=== PATIENT | female | born 1980 | race Caucasian/White ===

== ENCOUNTER 2019-06-18 21:29 | Emergency (ER) | payer OTHER ==
[2019-06-18 21:45] VITALS: TEMP 98; BMI 22.1
[2019-06-18] MEDS ORDERED: ACETAMINOPHEN 1000 MG/100 ML VIAL (NON FORMULARY) IVPB ONE (22:35)
[2019-06-18] MEDS ORDERED: FAMOTIDINE 20 MG/50 ML IVPB 20 MG/50 ML MG IVPB ONE ×2 (22:35→22:59)
[2019-06-18] MEDS ORDERED: DEXTROSE 5%-NORMAL SALINE 1,000 ML IV ONE (22:35)
--- NOTE | 2019-06-18 22:35 | PDOC ---
History of Present Illness - General Chief Complaint: Pain Stated Complaint: ABD/PAIN RADIATING TO THE BACK Time Seen by Provider: 06/18/19 22:26 History Source: Patient Exam Limitations: No Limitations - History of Present Illness Initial Comments: Sadie Guzman is a 38 yo F w a hx of GERD and a hernia who presents to the [facility] er with LUQ abdominal pain which radiates to the back. The patient states the pain is currently a 6/10 and feels like a burning sensation. The pain started 4 days ago but has slowly worsened over the past few days. The pain is worsened whenever the patient eats food. She states that she is sometimes scared to eat because she is concerned that her stomach is going to start hurting. She denies any nausea, vomiting, chest pain, diarrhea, constipation, dysuria, frequency, urgency, recent fevers, chills, or infections. GI doc: Dr. Roche PSH: None reported Social Hx: Denies smoking, drinking, or other substance usage Allergies: NKA, NKDA Past History - Past Medical History Allergies/Adverse Reactions: Allergies Allergy/AdvReac Type Severity Reaction Status Date / Time No Known Allergies Allergy Verified 06/18/19 21:45 Home Medications: Ambulatory Orders Arnica 120 ml TP 06/30/13 - Psycho Social/Smoking Cessation Hx Smoking History: Never smoked Hx Alcohol Use: No Substance Use Type: None Review of Systems - Review of Systems Able to Perform ROS?: No Comments:: CONSTITUTIONAL: Absent: fever, no chills, no fatigue EYES: Absent: visual changes ENT: Absent: ear pain, no sore throat CARDIOVASCULAR: Absent: chest pain, no palpitations RESPIRATORY: Absent: cough, no SOB GI: Present: Abdominal pain, nausea Absent: no vomiting, no constipation, no diarrhea GENITOURINARY: Absent: dysuria, no frequency, no hematuria MUSKULOSKELETAL: Present: Back pain Absent: no arthralgia, no myalgia SKIN: Absent: rash NEURO: Absent: headache *Physical Exam - Vital Signs Last Vital Signs Temp Pulse Resp BP Pulse Ox 98.0 F 70 18 115/80 99 06/18/19 21:42 06/18/19 21:42 06/18/19 21:42 06/18/19 21:42 06/18/19 21:42 - Physical Exam Comments: GENERAL: Well-appearing, well-nourished. No apparent distress. HEENT: Normocephalic, atraumatic. PERRL, EOM intact. CARDIOVASCULAR: Normal S1, S2. Regular rate and rhythm. PULMONARY: No evidence of respiratory distress. Lungs clear to auscultation bilaterally. No wheezing, rales or rhonchi. ABDOMEN: The abdomen is soft with mild TTP in the LUQ and epigastric regions. There are normal bowel sounds and the abdomen is not distended. There is no rebound or guarding. EXTREMITIES: Normal ROM in all four extremities. No gross deformities. SKIN: Warm, dry. No rash NEUROLOGICAL: No focal neurological deficits. ED Treatment Course - LABORATORY CBC & Chemistry Diagram: 06/18/19 23:00 06/18/19 23:00 Medical Decision Making - Medical Decision Making Sadie Guzman is a 38 yo F w a hx of GERD and a hernia who presents to the [facility] er with LUQ abdominal pain which radiates to the back. The patient states the pain is currently a 6/10 and feels like a burning sensation. The pain started 4 days ago but has slowly worsened over the past few days. The pain is worsened whenever the patient eats food. She states that she is sometimes scared to eat because she is concerned that her stomach is going to start hurting. She denies any nausea, vomiting, chest pain, diarrhea, constipation, dysuria, frequency, urgency, recent fevers, chills, or infections. Vital Signs Temp Pulse Resp BP Pulse Ox 98.0 F 70 18 115/80 99 06/18/19 21:42 06/18/19 21:42 06/18/19 21:42 06/18/19 21:42 06/18/19 21:42 DDx IBNLT: GERD, PUD, gastritis, gastroenteritis, pancreatitis, cholecystitis, electrolyte/metabolic distrubance, anemia, , UTI/Pylo, renal colic, kidney stone, SBO, ovarian cyst Plan: Labs, urine, CTAP, GI cocktail, IV hydration, supportive care, re-assess. Labs: Mild left shift, otherwise unremarkable. Urine: Clean CTAP: HISTORY: Rule out appendicitis COMPARISON: None. FINDINGS: Lung bases are clear. The visualized cardiac chambers are normal size and configuration. Normal liver, gallbladder, pancreas, spleen, adrenal glands and kidneys. The stomach and abdominal small and large bowel are normal. There is no aortic aneurysm. There is no significant retroperitoneal lymphadenopathy. The pelvic small and large bowel are normal. The appendix is normal. 1.9 cm involuting right ovarian cyst is noted. The uterus and left adnexal structures are normal. Urinary bladder is unremarkable. There is minimal pelvic free fluid. No discrete pelvic lymphadenopathy is identified. IMPRESSION: 1.9 cm involuting right ovarian cyst with minimal pelvic free fluid. No other localizing findings for acute pathology. Re-assessment: Patient feels better after receiving analgesics. She is comfortable knowing her pain is possibly coming from her ovarian cyst. 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 Strict return precautions discussed with patient. She knows to return to the ER if her pain worsens or she experiences any other new or worsening concerns. Discharge - Discharge Information Problems reviewed: Yes Clinical Impression/Diagnosis: Right ovarian cyst Condition: Improved Disposition: HOME - Admission No - Follow up/Referral Referrals: Tracy Hill MD [Staff Physician] - - Patient Discharge Instructions Patient Printed Discharge Instructions: DI for Ovarian Cyst Additional Instructions: You came into the ER with right lower abdominal pain. We did a cat scan which showed that you have a small 1.9 cm ovarian cyst. Please read the attached handout for further explanation. Take motrin/ibuprofen/advil as needed for pain control. Please schedule a follow up appointment with the cable engineer outside plant we are referring you to in the next 5 to 7 days. Come back to the ER immediately if your pain worsens or you have any other new or worsening concerns. Thank you for coming to the [facility] ER. We hope you feel better soon. Print Language: LUXEMBOURGER - Post Discharge Activity
[2019-06-18] MEDS ORDERED: MAG HYDROX/AL HYDROX/SIMETH 30 ML UNIT-DOSE CUP PO ONE (22:37)
[2019-06-18] MEDS ORDERED: DICYCLOMINE HCL 20 MG TABLET PO ONE (22:46)
[2019-06-18] MEDS ORDERED: DICYCLOMINE HCL 10 MG CAPSULE ONE (22:59)
[2019-06-18] MEDS ORDERED: ACETAMINOPHEN INJECTION 100 ML IVPB ONE (22:59)
[2019-06-18] MEDS ORDERED: MAG HYDROX/AL HYDROX/SIMETH 30 ML UNIT-DOSE CUP ONE (22:59)
[2019-06-18 23:07] LABS: BASO % 0.6 % (0-2.0); EOS % 1.9 % (0-4.5); HEMATOCRIT 33.8 % (32.4-45.2); HEMOGLOBIN 11.5 GM/dL (10.7-15.3); LYMPH % 47.5 % (8-40); MCHC 34.1 g/dl (32.0-36.0); MEAN CELL VOLUME 90.9 fl (80-96); MEAN PLT VOLUME 7.8 fl (7.5-11.1); MONO % 8.7 % (3.8-10.2); NEUT % 41.3 % (42.8-82.8); PLATELET COUNT 187 K/MM3 (134-434); RBC 3.72 M/mm3 (3.60-5.2); RDW 12.8 % (11.6-15.6); WHITE BLOOD COUNT 4.3 K/mm3 (4.0-10.0)
[2019-06-18 23:21] LABS: PH,URINE 7.5 (5.0-8.0); URINE APPEARANCE CLEAR; URINE BILIRUBIN NEGATIVE (NEGATIVE); URINE COLOR DK YELLOW; URINE GLUCOSE (UA) NEGATIVE (NEGATIVE); URINE KETONE NEGATIVE (NEGATIVE); URINE LEUK ESTERASE NEGATIVE (NEGATIVE); URINE NITRITE NEGATIVE (NEGATIVE); URINE PROTEIN NEGATIVE (NEGATIVE); URINE UROBILINOGEN 0.2 mg/dL (0.2-1.0)
[2019-06-18 23:35] LABS: ALBUMIN 3.5 g/dl (3.4-5.0); BILIRUBIN,TOTAL 0.3 mg/dL (0.2-1); BLOOD UREA NITROGEN 11.5 mg/dL (7-18); CALCIUM 8.5 mg/dL (8.5-10.1); CREATININE 0.7 mg/dL (0.55-1.3); MAGNESIUM 2.1 mg/dL (1.8-2.4); PHOSPHOROUS 3.4 mg/dL (2.5-4.9); POTASSIUM 3.8 mmol/L (3.5-5.1); TOT PROT 6.6 g/dl (6.4-8.2)
--- NOTE | 2019-06-19 00:46 | PDOC ---
Attending Attestation - Resident Resident Name: Corby Marshall - ED Attending Attestation I have performed the following: I have examined & evaluated the patient, The case was reviewed & discussed with the resident, I agree w/resident's findings & plan - HPI HPI: 06/19/19 00:43 Pt comes with mid abd pain. Started today. States that she has no dysuria and she has normal BM today at 11am She ate soup and a beef burger and pickles today nothing else; states that she is a small eater. Afebrile No N/V/D - Physicial Exam PE: 06/19/19 00:44 Pt has periumbilical pain Flank percussion causes pain around the umbilicus Pt has rebound in the lower quadrants that hurt at the belly button Pt has no other findings Normal rest of exam Agree with resident exam - Medical Decision Making 06/19/19 00:45 Labs normal Pt will have a CT scan to r/o appy 06/19/19 01:53 Patient Name: TONY MONSIVAIS THIS IS A PRELIMINARY REPORT FROM [facility] DATE OF SERVICE: 2019-06-19 00:17:14 IMAGES: 471 EXAM: ABDOMEN \T\ PELVIS CT WITH CONTR HISTORY: Rule out appendicitis COMPARISON: None. FINDINGS: Lung bases are clear. The visualized cardiac chambers are normal size and configuration. Normal liver, gallbladder, pancreas, spleen, adrenal glands and kidneys. The stomach and abdominal small and large bowel are normal. There is no aortic aneurysm. There is no significant retroperitoneal lymphadenopathy. The pelvic small and large bowel are normal. The appendix is normal. 1.9 cm involuting right ovarian cyst is noted. The uterus and left adnexal structures are normal. Urinary bladder is unremarkable. There is minimal pelvic free fluid. No discrete pelvic lymphadenopathy is identified. IMPRESSION: 1.9 cm involuting right ovarian cyst with minimal pelvic free fluid. No other localizing findings for acute pathology. 06/19/19 03:42 stable to go home with NSAIDS
[2019-06-19] MEDS ORDERED: KETOROLAC TROMETHAMINE 30 MG/1 ML VIAL IVPUSH ONE (01:53)
[2019-06-19] MEDS ORDERED: KETOROLAC TROMETHAMINE 30 MG/1 ML VIAL ONE (02:21)
[2019-06-19 02:29] VITALS: BP 118/74; PULSE 80
== END 2019-06-19 02:29 | disposition home or self-care (01) ==
LOC: JER 21:29
PROC: 3E033GC Introduction of Other Therapeutic Substance into Peripheral Vein, Percutaneous Approach (ICD-10-PCS; principal; 2019-06-18)
PROC: 3E0333Z Introduction of Anti-inflammatory into Peripheral Vein, Percutaneous Approach (ICD-10-PCS; 2019-06-18)
PROC: 3E033NZ Introduction of Analgesics, Hypnotics, Sedatives into Peripheral Vein, Percutaneous Approach (ICD-10-PCS; 2019-06-18)
DX: N83.201 Unspecified ovarian cyst, right side (principal); K21.9 Gastro-esophageal reflux disease without esophagitis
CPT/HCPCS: 36415; 74177-TC; 80053; 81003; 83690; 83735; 84100; 84703; 85025; 87086; 99282-25; J0131

== ENCOUNTER 2020-03-13 14:36 | Day surgery (SDC) | payer OTHER ==
--- NOTE | 2020-03-13 14:40 | PDOC ---
Rapid Medical Evaluation Time Seen by Provider: 03/13/20 14:40 Medical Evaluation: Allergies Allergy/AdvReac Type Severity Reaction Status Date / Time No Known Allergies Allergy Verified 06/18/19 21:45 03/13/20 14:40 I have performed a brief in-person evaluation of this patient. CC: upper abdominal pain x2 days. +nausea/NBNB vomiting. PE: RUQ tenderness with guarding. Orders: labs, urine, sono Patient to proceed to ED for further evaluation. Discharge Disposition - Diagnosis RUQ pain - Referrals - Patient Instructions - Post Discharge Activity
[2020-03-13] MEDS ORDERED: SODIUM CHLORIDE 1,000 ML IV STA ×2 (14:41→17:00)
[2020-03-13] MEDS ORDERED: ONDANSETRON 4 MG/2 ML VIAL IVPUSH ONE (14:41)
[2020-03-13 14:43] VITALS: BMI 23.8
[2020-03-13 15:23] LABS: BASO % 0.1 % (0-2.0); EOS % 0.1 % (0-4.5); HEMATOCRIT 37.5 % (32.4-45.2); HEMOGLOBIN 12.6 GM/dL (10.7-15.3); LYMPH % 8.9 % (8-40); MCH 30.5 pg (25.7-33.7); MCHC 33.6 g/dl (32.0-36.0); MEAN CELL VOLUME 90.8 fl (80-96); MEAN PLT VOLUME 7.7 fl (7.5-11.1); MONO % 8.5 % (3.8-10.2); NEUT % 82.4 % (42.8-82.8); PLATELET COUNT 205 K/MM3 (134-434); RBC 4.13 M/mm3 (3.60-5.2); RDW 12.8 % (11.6-15.6); WHITE BLOOD COUNT 13.9 K/mm3 (4.0-10.0)
[2020-03-13 15:40] LABS: BILIRUBIN,TOTAL 0.8 mg/dL (0.2-1); BLOOD UREA NITROGEN 9.7 mg/dL (7-18); CALCIUM 8.8 mg/dL (8.5-10.1); CREATININE 0.7 mg/dL (0.55-1.3); POTASSIUM 4.4 mmol/L (3.5-5.1); TOT PROT 7.6 g/dl (6.4-8.2)
--- NOTE | 2020-03-13 15:53 | PDOC ---
History of Present Illness - General Chief Complaint: Pain Stated Complaint: ABD PAIN/NAUSEA Time Seen by Provider: 03/13/20 14:40 History Source: Patient Exam Limitations: No Limitations - History of Present Illness Travel History: No Initial Comments: 03/13/20 15:58 39-year-old female presents to ED with complaints of right upper quadrant right flank pain for the past 2 days without nausea vomiting, fever, chills, diarrhea, change in menses, change in urine pattern, or rash. Patient denies any recent travel recent illness, recent sick contacts. Patient also denies injury Timing/Duration: reports: constant Quality: reports: moderate, sharpness Abdominal Pain Onset Location: reports: RUQ, flank Pain Radiation: reports: flank Activities at Onset: reports: none Aggravating Factors: improves with: None Alleviating Factors: improves with: None Past History - Travel History Traveled outside of the country in the last 30 days: No Close contact w/someone who was outside of country & ill: No - Medical History Allergies/Adverse Reactions: Allergies Allergy/AdvReac Type Severity Reaction Status Date / Time No Known Allergies Allergy Verified 03/13/20 14:42 Home Medications: Ambulatory Orders Arnica 120 ml TP 06/30/13 COPD: No - Reproductive History Is Patient Now?: No - Immunization History Td Vaccination: Yes TDAP Vaccination: Yes Immunization Up to Date: Yes - Psycho-Social/Smoking History Patient Lives Alone: No Lives with/in: spouse/SO Smoking History: Never smoked Abd/GI Specific PMHX - Complaint Specific PMHX Diverticulitis: No Gall Bladder Disease: No Review of Systems - Review of Systems Able to Perform ROS?: Yes Constitutional: No: Symptoms Reported HEENTM: No: Symptoms Reported Respiratory: No: Symptoms reported Cardiac (ROS): No: Symptoms Reported ABD/GI: Yes: Abdominal cramping : Yes: Flank Pain Musculoskeletal: Yes: Back Pain Integumentary: No: Symptoms Reported Neurological: No: Symptoms reported Endocrine: No: Symptoms Reported Hematologic/Lymphatic: No: Symptoms Reported *Physical Exam - Vital Signs Last Vital Signs Temp Pulse Resp BP Pulse Ox 98.4 F 82 18 111/79 100 03/13/20 14:38 03/13/20 14:38 03/13/20 14:38 03/13/20 14:38 03/13/20 14:38 - Physical Exam General Appearance: Yes: Nourished, Appropriately Dressed. No: Apparent Dis tress HEENT: negative: Pale Conjunctivae Neck: positive: Normal Thyroid. negative: Decreased range of motion Respiratory/Chest: positive: Lungs Clear, Normal Breath Sounds. negative: Chest Tender, Respiratory Distress, Accessory Muscle Use Cardiovascular: positive: Regular Rhythm, Regular Rate. negative: Murmur Gastrointestinal/Abdominal: positive: Soft, Tenderness (Right flank right upper and lower along with mild right CVA tenderness) Musculoskeletal: positive: CVA Tenderness (R) Extremity: positive: Normal Inspection Integumentary: positive: Normal Color, Warm, Moist Neurologic: positive: Motor Strength 5/5 (ambulatory) Heart Score/ECG Review - ECG Intrepretation Rhythm: Regular Rhythm (rate 80, nsr , qtc 463) ED Treatment Course - LABORATORY CBC & Chemistry Diagram: 03/13/20 15:04 03/13/20 15:04 - RADIOLOGY Radiology Studies Ordered: Category Date Time Status SPIRAL- RENAL-STONE CT [CT] Stat CT Scan 03/13/20 15:19 Ordered - Medications Given in the ED: ED Medications Discontinued Medications Generic Name Dose Route Start Last Admin Trade Name Freq PRN Reason Stop Dose Admin Ondansetron HCl 4 mg 03/13/20 14:41 03/13/20 15:00 Zofran Injection IVPUSH 03/13/20 14:42 4 mg ONCE ONE Administration Medical Decision Making - Medical Decision Making 03/13/20 16:01 Chief complaint: Patient with right abdominal pain without aggravating or alleviating factors no other complaints. Exam: Patient with right upper quadrant right flank right CVA tenderness. Plan: Labs, urine and imaging ordered 03/13/20 16:45 Laboratory Tests 03/13/20 03/13/20 03/13/20 15:04 15:04 15:35 WBC 13.9 H Hgb 12.6 Hct 37.5 Absolute Neuts (auto) 11.4 H Sodium 135 L Potassium 4.4 Chloride 104 Carbon Dioxide 25 Anion Gap 7 L BUN 9.7 Creatinine 0.7 Random Glucose 110 H Calcium 8.8 Total Bilirubin 0.8 AST 12 L ALT 17 Total Protein 7.6 Albumin 4.0 Lipase 138 Urine Ketones Negative Urine Nitrite Negative Urine HCG, Qual Negative Abdominal CT pending. 03/13/20 17:[address] shows positive appendicitis without obvious abscess or other acute pathology. Patient be made n.p.o. surgery on-call to be notified IV access established IV fluids infusing 03/13/20 18:[address] Myers who will consult shortly. Micro blog sent to hospitalist 03/13/20 18:18 Case discussed with resident Dr. Thompson and will accept patient. Dr. morlaes will be the admitting physician Discharge - Discharge Information Problems reviewed: Yes Clinical Impression/Diagnosis: Appendicitis - Admission Yes - Follow up/Referral Referrals: ON STAFF,NOT [Primary Care Provider] - - Patient Discharge Instructions - Post Discharge Activity
[2020-03-13 15:57] LABS: HCG,QUALITATIVE URINE Negative
[2020-03-13 16:18] LABS: URINE APPEARANCE CLEAR; URINE BILIRUBIN NEGATIVE (NEGATIVE); URINE COLOR YELLOW; URINE GLUCOSE (UA) NEGATIVE (NEGATIVE); URINE KETONE NEGATIVE (NEGATIVE); URINE LEUK ESTERASE NEGATIVE (NEGATIVE); URINE NITRITE NEGATIVE (NEGATIVE); URINE PROTEIN NEGATIVE (NEGATIVE)
[2020-03-13] MEDS ORDERED: KETOROLAC TROMETHAMINE 30 MG/1 ML VIAL IVPUSH ONE (16:50)
[2020-03-13] MEDS ORDERED: KETOROLAC TROMETHAMINE 30 MG/1 ML VIAL ONE (16:51)
[2020-03-13] MEDS ORDERED: CEFOXITIN SODIUM 2 GM in DEXTROSE 5%-WATER 100 ML IVPB ONE (19:28)
[2020-03-13] MEDS ORDERED: LACTATED RINGERS SOLUTION 1,000 ML/1,000 ML INFUS.BAG IV SCH ×2 (19:30→23:29)
--- NOTE | 2020-03-13 19:46 | PN ---
Teaching Attending Note Name of Resident: Nelda Sánchez ATTENDING PHYSICIAN STATEMENT I saw and evaluated the patient. I reviewed the resident's note and discussed the case with the resident. I agree with the resident's findings and plan as documented. SUBJECTIVE: Patient is a 39 year old woman with a PMH of GERD, Papillary thyroid cancer (s/p resection) and Right ovarian cyst who presents to ER with complaints of right upper quadrant and right flank pain for the past 2 days. Had associated nausea, decreased appetite and chills. No noted aggravating or alleviating factors. Patient denies injury. Pain is constant, moderate and sharp. Patient denies chest pain, shortness of breath, headache, palpitations, dizziness, fever, vomiting, diarrhea, constipation, dysuria, frequency, urgency, melena, hematochezia or hematuria. Denies alcohol, tobacco or illicit drug use. No sick contacts or recent travels. Family history of cancer of the spine in mother. OBJECTIVE: Alert Vital Signs Period Temp Pulse Resp BP Sys/Simeon Pulse Ox Last 24 Hr 98.4 F-98.8 F 71-82 17-18 100-111/62-79 99-100 HEENT: No Jaundice, eye redness or discharge, PERRLA, EOMI. Normocephalic, atraumatic. External ears are normal and hearing is grossly intact. No nasal discharge. Neck: Supple, nontender. No palpable adenopathy or thyromegaly. No JVD Chest: Good effort. Clear to auscultation and percussion. Heart: Regular. No S3, rub or murmur Abdomen: Not distended, soft, right upper quadrant and right CVA tenderness; no HSM. No rebound or guarding. Normal bowel sounds. Ext: Peripheral pulses intact. No leg edema. Skin: Warm and dry. No petechiae, rash or ecchymosis. Neuro: Alert. Oriented x3. CN 2-12 grossly intact. Sensation grossly intact in all four extremities and DTR are symmetric. Psych: Appropriate mood and affect. Good insight. Home Medications Medication Instructions Recorded Arnica 120 ml TP 06/30/13 Current Medications Generic Name Dose Route Start Last Admin Trade Name Freq PRN Reason Stop Dose Admin Cefoxitin Sodium 2 gm/ 100 mls @ 200 mls/hr 03/13/20 19:28 Dextrose IVPB 03/13/20 19:57 ONCE ONE Protocol Lactated Ringer's 1,000 ml in 1,000 mls @ 125 mls/hr 03/13/20 19:30 Lactated Ringers Solution IV ASDIR FELICIA Abnormal Lab Results 03/13/20 03/13/20 15:04 15:04 WBC 13.9 H Absolute Neuts (auto) 11.4 H Sodium 135 L Anion Gap 7 L Random Glucose 110 H AST 12 L Alkaline Phosphatase 17 L ASSESSMENT AND PLAN: 1. Appendicitis - CT scan of abdomen/pelvis without contrast shows evidence of appendicitis. Patient got one dose of IV Cefoxitin 2 gms and Surgery consulted. Will keep patient NPO, get PT/INR, TSH, CXR, give IV LR and IV Ketorolac PRN for pain control. Viral testing for COVID-19 ordered and patient placed on airborne, droplet and contact isolation. EKG shows NSR at 80/minute, LAD, IRBBB and QTc [address]-T wave changes. Initial troponin is negative. Will avoid drugs that may prolong QTc. Will continue comprehensive care for all of patients comorbid conditions. 2. DVT prophylaxis - Lovenox 40 mg SQ q 24 hours. 3. Advance directives - Full code
[2020-03-13] MEDS ORDERED: KETOROLAC TROMETHAMINE 15 MG/ML VIAL IVPUSH PRN ×2 (20:07→23:29)
[2020-03-13] MEDS ORDERED: KETOROLAC TROMETHAMINE 15 MG/ML VIAL ONE (20:13)
--- NOTE | 2020-03-13 21:07 | HP ---
CHIEF COMPLAINT: severe RLQ abdominal pain PCP: Dr. Willy Altman HISTORY OF PRESENT ILLNESS: Pt is a 39 yo F with PMH of GERD, R ovarian cyst, and papillary thyroid cancer (s/p resection of three microcarcinomas in December) presenting with severe RLQ abdominal pain for last 2 days. Pt describes the pain yesterday to be L sided and dull, moving to the periumbilical area in the evening. Today morning when she woke up, severe 10/10 sharp, non radiating RLQ pain, with only minimal im provement with tylenol and ibuprofen at home. Associated nausea, chills, and decreased appetite. Denies fever, vomiting, CP, SOB, changes in urinary habits, constipation, or diarrhea. Pt also visited her golf shoe spike assembler earlier today as she was concerned that the pain was maybe secondary to her ovarian cyst. Pt reports golf shoe spike assembler was not concerned about ovarian cyst but told pt to come to the ED. ER course was notable for: (1) Surgery consulted. (2) IV toradol given (3) Urine test negative. (4) CT abdomen showing evidence of appendicitis Recent Travel: none Sick Contacts: none PAST MEDICAL HISTORY: as per HPI PAST SURGICAL HISTORY: as per HPI; pt followed up with [facility] after removal of microcarcinomas and did not require any thyroid medications. Social History: Pt is a single mother. Lives in an apartment in [place] with her 2 kids (age 22 and 24). 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 Smoking: denies Alcohol: drinks 1 glass of wine/beer per week Drugs: denies Sexual Hx - not sexually active; no history of STIs Allergies No Known Allergies Allergy (Verified 03/13/20 14:42) HOME MEDICATIONS: Home Medications Medication Instructions Recorded Arnica 120 ml TP 06/30/13 REVIEW OF SYSTEMS as per HPI PHYSICAL EXAMINATION Vital Signs - 24 hr 03/13/20 03/13/20 03/13/20 14:38 18:32 19:20 Temperature 98.4 F 98.8 F 99.3 F Pulse Rate 82 Pulse Rate [ 71 81 Left] Respiratory 18 17 18 Rate Blood Pressure 111/79 Blood Pressure 100/62 102/62 [Left Arm] O2 Sat by Pulse 100 99 100 Oximetry (%) GENERAL: Awake, alert, and fully oriented, in no acute distress. Mild discomfort. HEAD: Normal with no signs of trauma. EYES: Pupils equal, round and reactive to light, extraocular movements intact, sclera anicteric, conjunctiva clear. EARS, NOSE, THROAT: Oropharynx clear without exudates. Moist mucous membranes. NECK: Normal range of motion, supple without lymphadenopathy LUNGS: Breath sounds equal, clear to auscultation bilaterally. No wheezes, and no crackles. No accessory muscle use. HEART: Regular rate and rhythm, normal S1 and S2 without murmur, rub or gallop. ABDOMEN: Soft, not distended, normoactive bowel sounds, moderate tenderness to palpation of RLQ and R flank with guarding. McBurney's point +, Rovsing +, Obturator sign +, Psoas sign + MUSCULOSKELETAL: moving all extremities equally and spontaneously; no CVA tenderness UPPER EXTREMITIES: 2+ pulses, warm, well-perfused. No peripheral edema. LOWER EXTREMITIES: 2+ pulses, warm, well-perfused. No peripheral edema. NEUROLOGICAL: Sensation to light touch intact. Normal speech. Normal gait. PSYCHIATRIC: Cooperative. Good eye contact. Appropriate mood and affect. SKIN: Warm, dry, normal turgor, no rashes or lesions noted. Laboratory Results - last 24 hr 03/13/20 03/13/20 03/13/20 15:04 15:04 15:35 WBC 13.9 H RBC 4.13 Hgb 12.6 Hct 37.5 MCV 90.8 MCH 30.5 MCHC 33.6 RDW 12.8 Plt Count 205 MPV 7.7 Absolute Neuts (auto) 11.4 H Neutrophils % 82.4 D Lymphocytes % 8.9 D Monocytes % 8.5 Eosinophils % 0.1 D Basophils % 0.1 Nucleated RBC % 0 Sodium 135 L Potassium 4.4 Chloride 104 Carbon Dioxide 25 Anion Gap 7 L BUN 9.7 Creatinine 0.7 Est GFR (CKD-EPI)AfAm 125.61 Est GFR (CKD-EPI)NonAf 108.38 Random Glucose 110 H Calcium 8.8 Total Bilirubin 0.8 AST 12 L ALT 17 Alkaline Phosphatase 17 L Total Protein 7.6 Albumin 4.0 Lipase 138 Urine Color Yellow Urine Appearance Clear Urine pH 6.0 Ur Specific Tell 1.023 Urine Protein Negative Urine Glucose (UA) Negative Urine Ketones Negative Urine Blood Negative Urine Nitrite Negative Urine Bilirubin Negative Urine Urobilinogen 1.0 Ur Leukocyte Esterase Negative Urine HCG, Qual Negative ASSESSMENT/PLAN: Pt is a 39 yo F with PMH of GERD, R ovarian cyst, and papillary thyroid cancer (s/p resection of three microcarcinomas in December) being admitted for acute appendicitis. #Acute Appendicitis CT Abd/Pelvis w/o contrast - evidence of acute appendicitis; abscess not appreciated Leukocytosis (13.9) - Surgery consulted by the ED - NPO - IV cefoxitin 2 g once given - IV toradol 15 q6h prn for pain control - LR @ 125 cc/hr - coags ordered - CXR ordered #DVT Ppx - SCDs #FEN F - LR @ 125 cc/hr E - monitor lytes, replete prn N - NPO #Dispo Admit to med-surg Full code. Family Medical History Family History: As Documented Visit type - Emergency Visit Emergency Visit: Yes ED Registration Date: 03/13/20 Care time: The patient presented to the Emergency Department on the above date and was hospitalized for further evaluation of their emergent condition. - New Patient This patient is new to me today: Yes Date on this admission: 03/14/20 - Critical Care Critical Care patient: No ATTENDING PHYSICIAN STATEMENT I saw and evaluated the patient. I reviewed the resident's note and discussed the case with the resident. I agree with the resident's findings and plan as documented. SUBJECTIVE: OBJECTIVE: ASSESSMENT AND PLAN:
[2020-03-13] MEDS ORDERED: ROCURONIUM BROMIDE 100 MG/10 ML VIAL ONE (21:29)
[2020-03-13] MEDS ORDERED: SUCCINYLCHOLINE CHLORIDE 200 MG/10 ML SYRINGE ONE (21:29)
[2020-03-13] MEDS ORDERED: ROCURONIUM BROMIDE 50 MG/5 ML SYRINGE ONE (21:31)
[2020-03-13] MEDS ORDERED: BUPIVACAINE HCL 100 ML ONE (22:01)
[2020-03-13] MEDS ORDERED: NEOSTIGMINE METHYLSULFATE 0.5 MG/ML - 10 ML MDV ONE (23:06)
[2020-03-13] MEDS ORDERED: BUPIVACAINE HCL/PF 0.5% (5 MG/ML) 30 ML VIAL IJ ONE (23:09)
[2020-03-13] MEDS ORDERED: morphine SULFATE 4 MG/ML VIAL IVPUSH PRN (23:18)
[2020-03-13] MEDS ORDERED: ONDANSETRON 4 MG/2 ML VIAL IVPUSH PRN (23:22)
--- NOTE | 2020-03-13 23:24 | OP ---
Operative Note - Note: Operative Date: 03/13/20 Pre-Operative Diagnosis: acute appendicittis Operation: laparoscopic appendectomy Findings: acute appendicittis Post-Operative Diagnosis: Same as Pre-op Surgeon: Blade Myers Anesthesia: General Specimens Removed: appendix Estimated Blood Loss (mls): 5 Operative Report Dictated: Yes
[2020-03-13] MEDS ORDERED: ACETAMINOPHEN INJECTION 100 ML IVPB ONE (23:36)
[2020-03-13] MEDS: ACETAMINOPHEN 1000 MG/100 ML VIAL (NON FORMULARY) IVPB PRN (23:39)
--- NOTE | 2020-03-14 00:21 | OP ---
DATE OF OPERATION: 03/13/2020 PREOPERATIVE DIAGNOSIS: Acute appendicitis. POSTOPERATIVE DIAGNOSIS: Acute appendicitis. PROCEDURE: Laparoscopic appendectomy. SURGEON: Blade Myers MD. COMPLICATIONS: None. BLEEDING: Minimal. SPECIMEN: Appendix. DISPOSITION: Patient tolerated procedure well. INDICATION: This is a 39-year-old female presented to the emergency room with abdominal pain, and CT scan confirmed diagnosis of acute appendicitis, elevated white count, for which surgical consultation was requested. Exam was consistent with acute appendicitis. Patient was recommended to undergo laparoscopic appendectomy, and she agreed to proceed as planned. DESCRIPTION OF PROCEDURE: In the operating room, she was placed in the supine position. After induction of general anesthesia, was prepared and draped in the usual sterile fashion. IV antibiotics were administered. The procedure was begun. A periumbilical incision was performed with a scalpel. A standard Davies approach was used in the peritoneal cavity. Insufflation was pressure of 15 mmHg was established. Two 5-mm ports were introduced, 1 in the suprapubic position, and 1 in the left lower quadrant. At this point then the patient was positioned in a Trendelenburg position. The right lower quadrant was explored. The appendix was identified, and it was confirmed diagnosis of acute appendicitis. The appendix was then lifted, and the mesoappendix was identified, and it was divided with a LigaSure, and the base of the appendix was divided with Endo VIK stapler purple reload, and the right upper quadrant pelvis were then irrigated and final check for hemostasis was performed, and the ports were then removed under direct vision, and specimen brought out through umbilical port in EndoCatch bag, and the fascia of the umbilical port was closed with 0 Vicryl sutures. The skin was closed with 4-0 Monocryl port sites, Dermabond was applied, and the patient was returned to the recovery room awake, alert, in stable condition. Jey [id number]
[2020-03-14] MEDS: ACETAMINOPHEN 1000 MG/100 ML VIAL (NON FORMULARY) IVPB PRN ×2 (05:39→14:54)
[2020-03-14 07:54] LABS: INR 1.11 (0.83-1.09); PROTHROMBIN TIME (PATIENT) 13.1 SEC (9.7-13.0)
[2020-03-14 07:55] LABS: BASO % 0.1 % (0-2.0); HEMOGLOBIN 11.1 GM/dL (10.7-15.3); LYMPH % 6.6 % (8-40); MCH 31.8 pg (25.7-33.7); MCHC 34.8 g/dl (32.0-36.0); MEAN CELL VOLUME 91.5 fl (80-96); MEAN PLT VOLUME 8.4 fl (7.5-11.1); MONO % 3.3 % (3.8-10.2); PLATELET COUNT 164 K/MM3 (134-434); WHITE BLOOD COUNT 11.8 K/mm3 (4.0-10.0)
[2020-03-14 07:57] LABS: ACTIVATED PTT 27.5 SECONDS (25.2-36.5)
[2020-03-14 08:34] LABS: BILIRUBIN,TOTAL 0.8 mg/dL (0.2-1); BLOOD UREA NITROGEN 6.1 mg/dL (7-18); CALCIUM 7.8 mg/dL (8.5-10.1); CREATININE 0.5 mg/dL (0.55-1.3); PHOSPHOROUS 3.4 mg/dL (2.5-4.9); TOT PROT 5.9 g/dl (6.4-8.2)
--- NOTE | 2020-03-14 08:47 | PN ---
Progress Note (short form) - Note Progress Note: Surgery POD #1 laparoscopic appendectomy seen and examined on AM rounds. She is tolerating sips of water and states her pain is controlled. She is voiding and passing flatus. She denies any CP, SOB, N/V fever or chills. Vital Signs Temp 98.2 F 03/14/20 02:20 Pulse 64 03/14/20 02:20 Resp 18 03/14/20 02:20 BP 84/53 L 03/14/20 02:20 Pulse Ox 98 03/14/20 02:20 Intake & Output 03/13/20 03/13/20 03/14/20 11:59 23:59 11:59 Intake Total 1000 1000 Output Total 10 0 Balance 990 1000 Weight 130 lb 130 lb Intake: IV 1000 900 LACTATED RINGERS SOLUTION 500 1,000 ml In 1,000 ml @ 125 mls/hr IV ASDIR FELICIA Rx#:[id number] IVPB 100 Output: Urine 0 Estimated Blood Loss 10 Other: Voiding Method Toilet Bowel Movement No Height 5 ft 2 in 5 ft 2 in Body Mass Index (BMI) 23.8 23.8 Weight Measurement Method Built in [facility] CBC, BMP 03/14/20 06:30 03/14/20 06:30 PE: A&Ox3, NAD Unlabored resp on RA ABD: soft, ND, with minimal TTP in RLQ, incisions c/d/i with surrounding tissue intact and no tracking erythema or evidence of collection or active d/c. B/L LE scds in place, compartments soft, supple and non-tender with +2 DP pulses. Problem List - Problems (1) Appendicitis Assessment/Plan: POD #1 lap appy doing well.with WBCs trending down and patient afebrile. -regular diet -d/c ABX -encourage IS -encourage OOB/ ambulation -d/c planning for home today if tolerating diet and pain controlled -f/u with Dr Myers 1 week after d/c. Evaluation and plan discussed with Dr Myers Code(s): K37 - UNSPECIFIED APPENDICITIS Qualifiers: Appendicitis type: acute appendicitis Appendicitis perforation presence: without perforation
--- NOTE | 2020-03-14 09:23 | EKG ---
Test Reason : Blood Pressure : / mmHG Vent. Rate : 080 BPM Atrial Rate : 080 BPM P-R Int : 148 ms QRS Dur : 108 ms QT Int : 402 ms P-R-T Axes : 077 -34 040 degrees QTc Int : 463 ms NORMAL SINUS RHYTHM LEFT AXIS DEVIATION LOW VOLTAGE QRS INCOMPLETE RIGHT BUNDLE BRANCH BLOCK ABNORMAL ECG NO PREVIOUS ECGS AVAILABLE Confirmed by Chris Smith MD ([id number]) on 03/14/2020 9:22:54 AM Referred By: Confirmed By:Chris Smith MD
[2020-03-14 15:22] VITALS: BP 95/60; PULSE 77; TEMP 98.7
--- NOTE | 2020-03-14 16:52 | DS ---
Physical Exam: SUBJECTIVE: Patient seen and examined. verbalizes mild pain and soreness on surgical incision. otherwise, denies any acute pain or discomfort. for discharge home. she agrees to follow up with surgery as an outpatient. OBJECTIVE: Patient presents to the ED on 03/13/2020 with abdominal pain and found to have acute appendicitis. She is s/p laparoscopic appendectomy. She is tolerating diet, denies any nausea/vomiting. WBC trending down and is afebrile. Vitals stable. Vital Signs Period Temp Pulse Resp BP Sys/Simeon Pulse Ox Last 24 Hr 98.1 F-99.3 F 58-82 12-18 84-102/44-65 98-100 PHYSICAL EXAM GENERAL: The patient is awake, alert, and fully oriented, in no acute distress. HEAD: Normal with no signs of trauma. EYES: PERRL, extraocular movements intact, sclera anicteric, conjunctiva clear. ENT: Ears normal, nares patent, oropharynx clear without exudates, moist mucous membranes. NECK: Trachea midline, full range of motion, supple. LUNGS: Breath sounds equal, clear to auscultation bilaterally HEART: Regular rate and rhythm ABDOMEN: Soft, nontender, non distended, + bowel sounds, surgical site c/d/i. EXTREMITIES: no edema. NEUROLOGICAL: Normal speech, gait not observed. PSYCH: Normal mood, normal affect. SKIN: Warm, dry, normal turgor, no rashes or lesions noted. LABS Laboratory Results - last 24 hr 03/13/20 03/13/20 03/14/20 06:30 18:00 06:30 WBC 11.8 H RBC 3.50 L Hgb 11.1 Hct 32.0 L MCV 91.5 MCH 31.8 MCHC 34.8 RDW 13.0 Plt Count 164 MPV 8.4 Absolute Neuts (auto) 10.6 H Neutrophils % 90.0 H Lymphocytes % 6.6 L D Monocytes % 3.3 L Eosinophils % 0.0 D Basophils % 0.1 Nucleated RBC % 0 PT with INR 13.10 H INR 1.11 H PTT (Actin FS) 27.5 Sodium Potassium Chloride Carbon Dioxide Anion Gap BUN Creatinine Est GFR (CKD-EPI)AfAm Est GFR (CKD-EPI)NonAf Random Glucose Calcium Phosphorus Magnesium Total Bilirubin AST ALT Alkaline Phosphatase Total Protein Albumin TSH COVID-19 ([place]) Not detected 03/14/20 06:30 WBC RBC Hgb Hct MCV MCH MCHC RDW Plt Count MPV Absolute Neuts (auto) Neutrophils % Lymphocytes % Monocytes % Eosinophils % Basophils % Nucleated RBC % PT with INR INR PTT (Actin FS) Sodium 139 Potassium 4.0 Chloride 110 H Carbon Dioxide 20 L Anion Gap 8 BUN 6.1 L Creatinine 0.5 L Est GFR (CKD-EPI)AfAm 140.31 Est GFR (CKD-EPI)NonAf 121.06 Random Glucose 107 H Calcium 7.8 L Phosphorus 3.4 Magnesium 2.0 Total Bilirubin 0.8 AST 15 ALT 14 Alkaline Phosphatase 28 L Total Protein 5.9 L Albumin 3.0 L TSH 1.42 COVID-19 ([place]) HOSPITAL COURSE: Date of Admission:03/13/20 Date of Discharge: 03/14/20 Minutes to complete discharge: 60 Discharge Summary Problems reviewed: Yes Reason For Visit: APPENDICITIS Condition: Good - Instructions Diet, Activity, Other Instructions: Discharge Instructions Dear TONY MONSIVAIS, Post Operative Instructions Physical activity Resume your normal everyday activity as tolerated no heavy lifting or exercise until seen by your surgeon. You may walk unlimited amounts of and climb stairs. You may resume driving the car when you feel safe and comfortable behind the wheel and no longer taking narcotics Wound care If you have a bandage, leave it on, and keep dry for 48 hours. You may shower 2 days after surgery. but do not submerge the incisions. Do not apply lotion to ointments to incisions. Diet There are no dietary restrictions. Eat healthy, high-fiber foods. Drink 6 to 8 glasses of liquid each day. This will assist in keeping your bowels are regular. Pain management You may take Tylenol or acetaminophen or Ibuprofen (for example, Motrin, Advil etc.) Any pain prescription medication ordered should be taken as prescribed for moderate to severe pain. Call Dr. Myers for any of the following: Severe pain not relieved by medication Fever of 101 or higher Excessive bleeding or drainage on dressing Inability to urinate If you experience any chest pain or shortness of breath please seek emergency treatment. Call the office for a post operative appointment in 7 - 10 days. Referrals: ON STAFF,NOT [Primary Care Provider] - Disposition: HOME - Home Medications Comprehensive Discharge Medication List: Ambulatory Orders Arnica 120 ml TP 06/30/13 oxyCODONE HCL [Roxicodone -] 5 mg PO Q4H PRN #20 tablet MDD 6 03/14/20 Problem List - Problems (1) Appendicitis Assessment/Plan: s/p lap appendectomy on 03/13/2020 cleared by surgery for d/c home Code(s): K37 - UNSPECIFIED APPENDICITIS Qualifiers: Appendicitis type: acute appendicitis Appendicitis perforation presence: without perforation (2) Right ovarian cyst Code(s): N83.201 - UNSPECIFIED OVARIAN CYST, RIGHT SIDE This patient is new to me today: Yes Date on this admission: 03/14/20 Emergency Visit: Yes Care time: The patient presented to the Emergency Department on the above date and was hospitalized for further evaluation of their emergent condition. Critical Care patient: No - Discharge Referral Referred to [facility] No
--- NOTE | 2020-03-15 17:21 | PATH ---
Surgical Pathology Report Patient Name: TONY MONSIVAIS [facility]. Rec. #: [id number] /Age/Gender: 1980 (Age: 39) / F Account: <[id number]> Location: EMERGENCY ROOM Taken: 03/13/2020 Received: 03/14/2020 Reported: 03/15/2020 Physicians: Blade Myers M.D. Specimen(s) Received APPENDIX Clinical History Acute appendicitis Final Diagnosis APPENDIX, LAPAROSCOPIC APPENDECTOMY: ACUTE APPENDICITIS AND PERIAPPENDICITIS. ACUTE SEROSITIS. Electronically Signed Kiley Martinez M.D. Gross Description Received in formalin, labeled "appendix," is a 5 cm. in length vermiform appendix with a stapled margin of resection and moderate attached fat. The serosa is masters-small with attached exudate. Sectioning reveals a focally hemorrhagic lumen. The wall of the appendix averages 0.1 cm. in thickness. Broaching Machine Operator sections are submitted in one cassette. 03/14/[address] [facility]03/14/2020
== END 2020-03-14 16:49 | disposition home or self-care (01) ==
LOC: JER 14:36 → JASUSAT 18:28 → JERBED 18:28 → UNDOADMIN 18:28 → JERBED 03-14 01:23 → J6S 03-14 01:23 → JASUSAT 03-14 16:49
PROVIDERS: ATTEND Nurse Practitioner Family
PROC: 0DTJ4ZZ Resection of Appendix, Percutaneous Endoscopic Approach (ICD-10-PCS; principal; 2020-03-13 21:22)
DX: K35.80 Unspecified acute appendicitis (principal)
CPT/HCPCS: 36415; 71045-TC-FY; 74176-TC; 80053; 81003; 83690; 83735; 84100; 84443; 84703; 85025; 85610; 85730; 87086; 88304-TC; 93005; 93010; 94010; 94760; 99285-25; J0131; U0003

== ENCOUNTER 2021-05-23 16:30 | Emergency (ER) | payer OTHER ==
[2021-05-23 16:57] VITALS: BP 114/77; PULSE 92; TEMP 97.5; BMI 21.9
== END 2021-05-23 18:30 | disposition home or self-care (01) ==
LOC: JER 16:30
DX: J06.9 Acute upper respiratory infection, unspecified (principal)
CPT/HCPCS: 87651; 87804; 99283-25; C9803; U0003; U0005